=== PATIENT | female | born 1985 | race Asian ===

== ENCOUNTER 2025-04-21 11:38 | Emergency (ER) | payer BC, OTHER, SELFPAY ==
[2025-04-21] VITALS (18 sets, daily range): BP systolic 123–153; BP diastolic 61–89; BMI 38.9
[2025-04-21 12:55] LABS: Hematocrit 23.2 % (37.0-47.0); Hemoglobin 6.1 g/dL (12.0-16.0); Mean Corp Hgb Conc. 26.3 g/dL (33.0-37.0); Mean Corpuscular Volume 60.3 fL (81.0-99.0); Nucleated Red Blood Cells % 0.6 %; Platelet Count 359 10^3/uL (130-400); Red Cell Dist. Width 21.5 % (11.5-14.5)
[2025-04-21 13:10] LABS: ALT (SGPT) 11 U/L (0-35); AST (SGOT) 14 U/L (14-36); Albumin 4.0 g/dl (3.5-5.0); Alkaline Phosphatase 72 U/L (38-126); Blood Urea Nitrogen 9 mg/dl (7-17); Calcium 8.7 mg/dl (8.4-10.2); Carbon Dioxide 25 mmol/L (22-30); Chloride 105 mmol/L (98-107); Estimated Creatinine Clearance > 125 ml/min; Glucose 132 mg/dl (70-99); Potassium 3.9 mmol/L (3.5-5.1); Sodium 135 mmol/L (135-145); Total Protein 6.9 g/dl (6.3-8.2); eGFR > 60.00
--- NOTE | 2025-04-21 15:19 | ED.GENMED ---
History of Present Illness
General
Chief Complaint: Abnormal Lab Value
Source: patient and spouse (Spouse states that he has noted that she has been short of breath with exertion)
Time Seen by Provider: 04/21/25 12:09
History of Present Illness
History of Present Illness:
Note:
CHIEF COMPLAINT(S)
Heavy menstrual bleeding and fatigue.
HISTORY OF PRESENT ILLNESS
The patient is a 40-year-old female who presents with complaints of heavy menstrual bleeding and persistent fatigue. She reports that her menstrual periods have been significantly heavy, leading to notable exhaustion, particularly during
menstruation. Recently, she experienced intermenstrual bleeding occurring over a week where she bled four to five times intermittently. These symptoms have persisted over the course of probably two years.
She has undergone recent bloodwork as a routine check-up and during this time observed that she experiences fatigue and shortness of breath during her periods. The patient also mentioned that she gets lightheaded and that these feelings have
progressed slowly over time. She also shared that while she feels tired and out of breath, these symptoms may be part of her norm.
She has had consultations with her associate media planner, where discussions of a possible hysterectomy have occurred. However, any surgical intervention is planned for August, with her next gynecology appointment scheduled for June.
PAST MEDICAL AND SURGICAL HISTORY
Denies any significant past surgical history.
CHRONIC MEDICAL CONDITIONS SIGNIFICANTLY AFFECTING CARE
The patient reports a history of iron deficiency anemia, attributed to chronic blood loss secondary to menorrhagia.
SOCIAL DETERMINANTS AFFECTING HEALTH
N/A
MEDICATIONS
No current medications noted, denies taking iron supplements presently.
REVIEW OF SYSTEMS
- Hematologic: Reports heavy menstrual bleeding.
- General: Complains of fatigue and exhaustion during periods.
- Cardiovascular: Experiences shortness of breath.
- Neurological: Describes episodes of lightheadedness.
PHYSICAL EXAM
General: Alert, no acute distress.
Skin: Warm, dry.
Head: Normocephalic, atraumatic.
Neck: Supple, trachea midline.
Eye, Ears, Nose, Mouth, and Throat: Oral mucosa moist.
Cardiovascular: Normal peripheral perfusion, No edema. Heart regular without murmur
Respiratory: Respirations are non-labored. Lungs clear
Gastrointestinal: Abdomen nondistended
Back: Normal range of motion, Normal alignment.
Musculoskeletal: Normal ROM, normal strength.
Neurological: Alert and oriented to person, place, time, and situation, No focal neurological deficit observed.
Psychiatric: Cooperative, appropriate mood & affect.
PLAN
- Consider administration of blood transfusion if hemoglobin levels remain critically low.
- Initiate iron supplementation or consider iron infusions to support bone marrow production.
- Re-check lab results in approximately two weeks to monitor hemoglobin and iron levels.
- Continue monitoring symptoms such as fatigue and shortness of breath to evaluate improvement.
- Encourage follow-up with gynecology for further management of menorrhagia and planned hysterectomy.
DIFFERENTIAL DIAGNOSIS
The Differential Diagnosis includes, in no particular order and is not limited to:
1. Iron deficiency anemia
2. Uterine fibroids
3. Endometrial hyperplasia
4. Hypothyroidism
5. Thrombocytopenia
6. Von Willebrand disease
7. Anemia of chronic disease
8. Hemolytic anemia
9. Polycystic ovary syndrome
10. Dysfunctional uterine bleeding
Disposition:
SUMMARY OF ENCOUNTER
The patient, a female with a history of heavy menstrual bleeding due to fibroids, presented to the emergency department after outpatient laboratory tests revealed anemia. She reports that her shortness of breath on exertion has slowly progressed but
she feels near her baseline overall. The patient is aware of her heavy bleeding and has been scheduled for a hysterectomy in August following consultations with her associate media planner. Todays labs indicate a hemoglobin level of 6.1, with normal white blood
cell and platelet counts, and an MCV of 60. A normal BMP was noted. Despite her low hemoglobin, the patient is hemodynamically stable, suggesting her anemia has developed gradually over time due to chronic heavy vaginal bleeding. The patient
expressed reluctance to be admitted as an inpatient, as she feels well otherwise. Given her hemoglobin level of 6.1, it was decided to administer two units of packed red blood cells. Daily iron supplementation was recommended, along with follow-up
with her primary care physician. The patient may benefit from iron infusions until her scheduled hysterectomy. Repeat laboratory tests were advised in two weeks. She was also advised to return to the emergency department if she experiences any
progressive symptoms. The patient agreed to the plan, with her present at the bedside.
DISPOSITION
Discharge.
ASSESSMENT
The patient�s anemia is likely secondary to chronic heavy menstrual bleeding due to uterine fibroids.
EMERGENCY TREATMENTS ADMINISTERED
Administered two units of packed red blood cells.
PLAN
- Administer two units of packed red blood cells today.
- Begin daily iron supplementation.
- Follow up with primary care physician.
- Arrange for potential iron infusions until the planned hysterectomy.
- Repeat laboratory studies in two weeks.
- Advise the patient to return for any progressive symptoms.
PATIENT EDUCATION AND COUNSELING
The patient was informed about the likelihood of her anemia being due to chronic heavy menstrual bleeding and the importance of following up with her primary care doctor and proceeding with the planned hysterectomy for definitive management. The
patient was encouraged to begin daily iron supplementation and the need for potential iron infusions was discussed. She was advised to return to the emergency department if symptoms worsen.
FOLLOW-UP INSTRUCTIONS
The patient was advised to have follow-up with her primary care provider and to return for repeat lab work in two weeks. She was also instructed to immediately return to the emergency department if she experiences any worsening symptoms.
MEDICATION RECONCILIATION
- Administered two units of packed red blood cells during this visit.
- Daily iron supplementation recommended.
MEDICAL DECISION MAKING
1. Number and Complexity of Problems Addressed:
Chronic conditions affecting care - Iron deficiency anemia due to chronic blood loss from uterine fibroids.
Differential diagnosis includes:
1. Iron deficiency anemia
2. Uterine fibroids
3. Endometrial hyperplasia
4. Hypothyroidism
5. Thrombocytopenia
6. Von Willebrand disease
7. Anemia of chronic disease
8. Hemolytic anemia
9. Polycystic ovary syndrome
10. Dysfunctional uterine bleeding
2. Data:
Category 1
- Independent review of lab tests: Hemoglobin 6.1 g/dL, normal white blood cell count, normal platelet count, MCV of 60, normal BMP.
3. Risk:
Prescription medication was considered and iron supplementation was recommended.
Consideration of Admission/Observation: Escalation of care including admission/observation was considered given the complexity and risk of the patients presenting complaint, exam findings, and underlying comorbidities. However, ultimately I feel the
patient is safe for outpatient management with close follow-up. Reasoning: Work-up reassuring, does not reveal any acute life/organ-threatening processes, patients symptoms well-controlled upon reevaluation, reexamination is reassuring, vitals are
stable, patient agreeable with discharge, reliable for follow-up.
DIAGNOSIS
1. Iron deficiency anemia due to chronic blood loss (D50.0)
2. Uterine fibroids (D25.9)
Course
Orders/Labs/Results
Orders:
Orders
04/21/25 12:32
Type And Crossmatch [Type+Screen] Urgent
Complete Blood Count/With Diff Urgent
Comprehensive Metabolic Panel Urgent
04/21/25 13:53
* Blood Bank Products Routine
Blood Bank Products: *Packed RBC Leuko (PRBC's
Quantity: 2
Transfuse Today: Yes
Reason: Anemia
IV Insert/Care/Rem.- Treatment PRN
Abnormal Lab Results
04/21/25
12:32
RBC 3.85 L 10^6/uL
(4.20-5.40)
Hgb 6.1 L* g/dL
(12.0-16.0)
Hct 23.2 L %
(37.0-47.0)
MCV 60.3 L fL
(81.0-99.0)
MCH 15.8 L pg
(27.0-31.0)
MCHC 26.3 L g/dL
(33.0-37.0)
RDW 21.5 H %
(11.5-14.5)
Glucose 132 H mg/dl
(70-99)
Crossmatch IS Only See Detail
04/21/25 12:32
04/21/25 12:32
Vital Signs
Initial and Last Documented VS:
Initial Vital Signs
Temp Pulse Resp BP Pulse Ox
97.8 F 85 18 153/88 100
04/21/25 11:46 04/21/25 11:46 04/21/25 11:46 04/21/25 11:46 04/21/25 11:46
Last Documented Vital Signs
Temp Pulse Resp BP Pulse Ox
98.7 F 76 25 126/61 100
04/21/25 15:08 04/21/25 15:08 04/21/25 15:08 04/21/25 15:08 04/21/25 15:20
*Pulse Oximetry
SaO2: 100
Oxygen Mode of Delivery: Room air
Patient hypoxic: no
*Critical Care Note
Total Time (30-74mins, 75-104mins- exclusive of procedures): 30 minutes
ED Attending Note
-
Portions of this chart may have been created with voice recognition software.� Occasional wrong word or��sound alike� substitutions may have occurred due to the inherent limitations of voice recognition software.
Discharge Plan
Departure
Discharge Problem:
Symptomatic anemia, Microcytic anemia
Instructions: Low iron, Anemia in adults, possibly from low iron - ED (DC)
Prescriptions:
No Action
No Current Medications
0
Referrals:
Danielle Amaya CRNP [Family Provider, Internal Medicine]
Activity Restrictions/Additional Instructions:
Please take iron supplementation daily as discussed. Return immediately for difficulty breathing, chest pain, lightheadedness, passing out episode, or any other concerns. Please see your doctor in the next 3 to 5 days for follow-up and
reevaluation. Please have your lab work repeated in the next 2 weeks. Please also consider further management with gynecology regarding your heavy menstrual cycles.
Interventions
Interventions:
*Risk Screen - Suicide Last Done: 04/21/25 11:46
*General Assessment Last Done: 04/21/25 11:46
*Neglect/Abuse Screening Last Done: 04/21/25 11:46
*ED- Fall Risk Assessment Last Done: 04/21/25 12:45
*ED COVID-19 Vaccine History Last Done: 04/21/25 12:45
*ED Influenza Vaccine History Last Done: 04/21/25 12:45
Discharge Date and Time
Print Language: IRISH
== END 2025-04-21 18:18 | disposition home or self-care (01) ==
LOC: EMR 11:38
PROVIDERS: EMERGENCY PHYSICIAN Emergency Medicine; FAMILY PHYSICIAN Nurse Practitioner Family
DX: D62 Acute posthemorrhagic anemia (principal); D25.9 Leiomyoma of uterus, unspecified
CPT/HCPCS: 99285; 36430; 80053; 85025; 86850; 86900; 86901; 86920; P9016